=== PATIENT | female | born 1980 | race Caucasian/White ===

== ENCOUNTER 2016-10-14 13:45 | Emergency (ER) | payer OTHER ==
[2016-10-14] MEDS ORDERED: Ibuprofen TAB* 600 MG PO ONE (15:53)
--- NOTE | 2016-10-14 15:54 | UC ---
Skin Complaint HPI - HPI Summary HPI Summary: left breast painful and swollen began yesterday but got signif. worse today - History of Current Complaint Chief Complaint: UCSkin Time Seen by Provider: 10/14/16 15:38 Stated Complaint: SKIN ISSUE Hx Obtained From: Patient Hx Last Menstrual Period: 10/06/16 ?: No Onset/Duration: Sudden Onset, Lasting Days - 2, Still Present, Worse Since - today Timing: Constant Onset Severity: Mild Current Severity: Moderate Pain Intensity: 8 Pain Scale Used: 0-10 Numeric Location: Discrete - left breast Character: Swelling, Pain, Redness Aggravating: Touch Alleviating: Nothing Associated Signs & Symptoms: Positive: Fever, Chills - Allergy/Home Medications Allergies/Adverse Reactions: Allergies Allergy/AdvReac Type Severity Reaction Status Date / Time Cephalexin Allergy Severe Rash Verified 01/24/14 10:07 Clindamycin Allergy Severe Hives Verified 01/24/14 10:07 Doxycycline Allergy Rash Verified 10/14/16 15:33 Latex Allergy SKIN Verified 01/24/14 10:07 IRRITATION Nickel Allergy Rash Verified 01/24/14 10:07 Review of Systems Constitutional: Fever, Chills, Fatigue Skin: Other - left breast firm swollen tender Eyes: Negative ENT: Negative Respiratory: Negative Cardiovascular: Negative Gastrointestinal: Negative Genitourinary: Negative Motor: Negative Neurovascular: Negative Musculoskeletal: Negative Neurological: Negative Psychological: Negative All Other Systems Reviewed And Are Negative: Yes PMH/Surg Hx/FS Hx/Imm Hx Previously Healthy: Yes - Surgical History Surgical History: Yes Surgery Procedure, Year, and Place: APPENDECTOMY-2000 - Family History Known Family History: Positive: None Family History: no cardio vascular issues reported in family lineage - Social History Occupation: Employed Full-time Lives: With Family Alcohol Use: Weekly Alcohol Amount: 2-3 DRINKS PER WEEK Substance Use Type: None Smoking Status (MU): Current Some Day Smoker Type: Cigarettes Amount Used/How Often: 3-4 CIGARETTES PER DAY X 10 YEARS Have You Smoked in the Last Year: Yes When Did the Patient Quit Smoking/Using Tobacco: 12/2013 Physical Exam Triage Information Reviewed: Yes Appearance: Well-Nourished, Ill-Appearing, Pain Distress Vital Signs: Initial Vital Signs Temp 101.2 F 10/14/16 15:29 Pulse 94 10/14/16 15:29 Resp 18 10/14/16 15:29 BP 155/81 10/14/16 15:29 Pulse Ox 100 10/14/16 15:29 Vital Signs Reviewed: Yes Eye Exam: Normal Eyes: Positive: Conjunctiva Clear ENT Exam: Normal ENT: Positive: Normal ENT inspection, Hearing grossly normal. Negative: Nasal congestion, Nasal drainage, Trismus, Muffled/hoarse voice Dental Exam: Normal Neck exam: Normal Neck: Positive: Supple, Nontender, No Lymphadenopathy Respiratory Exam: Normal Respiratory: Positive: Chest non-tender, Lungs clear, Normal breath sounds, No respiratory distress, No accessory muscle use Cardiovascular Exam: Normal Cardiovascular: Positive: RRR, No Murmur, Pulses Normal, Brisk Capillary Refill Musculoskeletal Exam: Normal Musculoskeletal: Positive: Strength Intact, ROM Intact, No Edema Neurological Exam: Normal Neurological: Positive: Alert, Muscle Tone Normal Psychological Exam: Normal Skin Exam: Other Skin: Positive: Other - left breast painful swollen tender no open area observed Course/Dx - Course Course Of Treatment: transfer to [facility] ED for higher level of care - Differential Diagnoses - Skin Complaint Differential Diagnoses: Abscess, Cellulitis, Lymphangitis - Diagnoses Provider Diagnoses: Left breast pain/fever - Physician Notification/Consults Discussed Patient Care With: Mallory Mattson Time Discussed With Above Provider: 16:10 Instructed by Provider To: Transfer Discharge - Discharge Plan Condition: Fair Disposition: AGAINST MEDICAL ADVICE Referrals: Rajesh Conrad MD [Primary Care Provider] -
[2016-10-14 16:15] VITALS: BP 150/80
== END 2016-10-14 16:10 | disposition left against medical advice (07) ==
LOC: UCEAST 13:45
DX: N64.4 Mastodynia (principal); R50.9 Fever, unspecified; Z87.891 Personal history of nicotine dependence
CPT/HCPCS: 99212; A9270-GY; G0463

== ENCOUNTER 2016-10-14 16:41 | Emergency (ER) | payer OTHER ==
[2016-10-14 18:33] LABS: Hematocrit 38 % (35-47); Hemoglobin 12.5 g/dl (12.0-16.0); Mean Corpuscular HGB Conc 33 g/dl (31-36); Mean Corpuscular Hemoglobin 30 pg (27-31); Mean Corpuscular Volume 90 fL (80-97); Mean Platelet Volume 9 um3 (7.4-10.4); Red Blood Count 4.22 10^6/ul (4.0-5.4); Red Cell Distribution Width 14 % (10.5-15); White Blood Count 17.7 10^3/ul (3.5-10.8)
[2016-10-14 18:51] LABS: ALT 10 U/L (7-52); AST 9 U/L (13-39); Albumin 3.9 g/dL (3.2-5.2); Alkaline Phosphatase 78 U/L (34-104); Anion Gap 6 mmol/L (2-11); BUN/Creatinine Ratio 13.5 (8-20); Blood Urea Nitrogen 10 mg/dL (6-24); CO2 Carbon Dioxide 24 mmol/L (22-32); Calcium 8.7 mg/dL (8.6-10.3); Chloride 105 mmol/L (101-111); EGFR African American 116.2 (>60); EGFR Non-African American 90.4 (>60); Globulin 2.8 g/dL (2-4); Glucose 123 mg/dL (70-100); Potassium 3.5 mmol/L (3.5-5.0); Sodium 135 mmol/L (133-145); Total Protein 6.7 g/dL (6.4-8.9)
--- NOTE | 2016-10-14 19:38 | RAD ---
Indication: LEFT breast mass. Fever. Symptoms began yesterday. Red swollen areola region. Painful to touch. Comparison: No relevant prior exams available on the [facility] PACS for comparison. Technique: Ultrasound retroareolar region LEFT breast. Report: In the retroareolar region there is a lobular margin well-circumscribed anechoic lesion measuring 4.2 x 3.3 x 3.7 cm with a well-defined posterior wall and posterior acoustic enhancement devoid of intrinsic vascularity. The cystic lesion demonstrates approximate 1 -- 2 mm wall thickness. No duct dilatation evident. Given the clinical context the cystic lesion is suspicious for abscess. As the finding is not entirely specific short interval follow-up ultrasound after therapy suggested to assess for resolution. ASSESSMENT: ACR BIRADS Category 3: Probably Benign
--- NOTE | 2016-10-14 20:29 | ED ---
Skin Complaint - HPI Summary HPI Summary: 35F presents with pain in left breast since yesterday. She is not breast feeding nor has any children. She denies any abrasion. She does have history of skin infections from eczema. She admits to fevers that are being controlled with ibuprofen. She states the area has increased in size over the past day. She states her pain is okay with ibuprofen. She denies any piercings of the area. She denies any other symptoms. She has extensive allergies to antibiotics that all cause rash. - History of Current Complaint Chief Complaint: EDGeneral Time Seen by Provider: 10/14/16 18:16 Stated Complaint: LT BREAST SWELLING/PAIN Hx Last Menstrual Period: 10/06/16 Pain Intensity: 6 - Allergy/Home Medications Allergies/Adverse Reactions: Allergies Allergy/AdvReac Type Severity Reaction Status Date / Time Cephalexin Allergy Severe Rash Verified 01/24/14 10:07 Clindamycin Allergy Severe Hives Verified 01/24/14 10:07 Doxycycline Allergy Rash Verified 10/14/16 15:33 Latex Allergy SKIN Verified 01/24/14 10:07 IRRITATION Nickel Allergy Rash Verified 01/24/14 10:07 PMH/Surg Hx/FS Hx/Imm Hx Endocrine/Hematology History: Denies: Hx Diabetes, Hx Thyroid Disease Cardiovascular History: Denies: Hx Congestive Heart Failure, Hx Hypertension Respiratory History: Reports: Hx Asthma - Sports induced Denies: Hx Chronic Obstructive Pulmonary Disease (COPD) GI History: Denies: Hx Ulcer History: Reports: Hx Kidney Infection - ABOUT 1 MONTH, Hx Kidney Stones - BILATERAL. CURRENTLY Sensory History: Denies: Hx Contacts or Glasses, Hx Hearing Aid Opthamlomology History: Denies: Hx Contacts or Glasses - Surgical History Surgery Procedure, Year, and Place: APPENDECTOMY-2000 Hx Anesthesia Reactions: No Infectious Disease History: No Infectious Disease History: Denies: Hx Hepatitis, Hx Human Immunodeficiency Virus (HIV), History Other Infectious Disease, Traveled Outside the [place] in Last 30 Days - Family History Known Family History: Positive: None Family History: no cardio vascular issues reported in family lineage - Social History Alcohol Use: Weekly Alcohol Amount: 2-3 DRINKS PER WEEK Substance Use Type: Reports: None Smoking Status (MU): Current Some Day Smoker Type: Cigarettes Amount Used/How Often: 3-4 CIGARETTES PER DAY X 10 YEARS Have You Smoked in the Last Year: Yes Review of Systems Negative: Fever Negative: Chest Pain Negative: Shortness Of Breath Positive: Rash, Other - breast pain All Other Systems Reviewed And Are Negative: Yes Physical Exam Triage Information Reviewed: Yes Vital Signs On Initial Exam: Initial Vitals Temp Pulse Resp BP Pulse Ox 100.8 F 100 20 135/70 99 10/14/16 16:48 10/14/16 16:48 10/14/16 16:48 10/14/16 16:48 10/14/16 16:48 Vital Signs Reviewed: Yes Appearance: Positive: Ill-Appearing Skin: Positive: Warm, Dry, Other - small area of erythema near left breast areola, large area of fluctuance felt under areola Head/Face: Positive: Normal Head/Face Inspection Eyes: Positive: Normal, EOMI, KELLIE, Conjunctiva Clear ENT: Positive: Normal ENT inspection, Pharynx normal, TMs normal Respiratory/Lung Sounds: Positive: Clear to Auscultation, Breath Sounds Present Cardiovascular: Positive: Normal, RRR - [place] Coma Scale Coma Scale Total: 15 Diagnostics - Vital Signs Vital Signs Temp Pulse Resp BP Pulse Ox 10/14/16 17:57 99.9 F 96 18 128/77 98 10/14/16 16:48 100.8 F 100 20 135/70 99 - Laboratory Lab Results: Lab Results 10/14/16 10/14/16 10/14/16 Range/Units 18:23 18:23 18:23 WBC 17.7 H (3.5-10.8) 10^3/ul RBC 4.22 (4.0-5.4) 10^6/ul Hgb 12.5 (12.0-16.0) g/dl Hct 38 (35-47) % MCV 90 (80-97) fL MCH 30 (27-31) pg MCHC 33 (31-36) g/dl RDW 14 (10.5-15) % Plt Count 238 (150-450) 10^3/ul MPV 9 (7.4-10.4) um3 Neut % (Auto) 81.3 (38-83) % Lymph % (Auto) 12.7 L (25-47) % Logan % (Auto) 5.5 (1-9) % Eos % (Auto) 0.3 (0-6) % Baso % (Auto) 0.2 (0-2) % Absolute Neuts (auto) 14.4 H (1.5-7.7) 10^3/ul Absolute Lymphs (auto) 2.3 (1.0-4.8) 10^3/ul Absolute Monos (auto) 1.0 H (0-0.8) 10^3/ul Absolute Eos (auto) 0.1 (0-0.6) 10^3/ul Absolute Basos (auto) 0 (0-0.2) 10^3/ul Absolute Nucleated RBC 0 10^3/ul Nucleated RBC % 0 Sodium 135 (133-145) mmol/L Potassium 3.5 (3.5-5.0) mmol/L Chloride 105 (101-111) mmol/L Carbon Dioxide 24 (22-32) mmol/L Anion Gap 6 (2-11) mmol/L BUN 10 (6-24) mg/dL Creatinine 0.74 (0.51-0.95) mg/dL Est GFR ( Amer) 116.2 (>60) Est GFR (Non-Af Amer) 90.4 (>60) BUN/Creatinine Ratio 13.5 (8-20) Glucose 123 H (70-100) mg/dL Lactic Acid 1.2 (0.5-2.0) mmol/L Calcium 8.7 (8.6-10.3) mg/dL Total Bilirubin 0.70 (0.2-1.0) mg/dL AST 9 L (13-39) U/L ALT 10 (7-52) U/L Alkaline Phosphatase 78 (34-104) U/L C-React Prot High Sens 98.72 mg/L Total Protein 6.7 (6.4-8.9) g/dL Albumin 3.9 (3.2-5.2) g/dL Globulin 2.8 (2-4) g/dL Albumin/Globulin Ratio 1.4 (1-3) Beta HCG, Quant < 0.60 mIU/mL Result Diagrams: 10/14/16 18:23 10/14/16 18:23 Lab Statement: Any lab studies that have been ordered have been reviewed, and results considered in the medical decision making process. - Ultrasound No standard instances Ultrasound Interpretation: Positive (See Comments) - Report: In the retroareolar region there is a lobular margin well-circumscribed anechoic lesion measuring 4.2 x 3.3 x 3.7 cm with a well-defined posterior wall and posterior acoustic enhancement devoid of intrinsic vascularity. The cystic lesion demonstrates approximate 1 -- 2 mm wall thickness. No duct dilatation evident. Given the clinical context the cystic lesion is suspicious for abscess. As the finding is not entirely specific short interval follow-up ultrasound after therapy suggested to assess for resolution. Ultrasound Interpretation Completed By: Radiologist Course/Dx - Course Course Of Treatment: 35F presents with pain in left breast since yesterday. She is not breast feeding nor has any children. She denies any abrasion. She does have history of skin infections from eczema. She admits to fevers that are being controlled with ibuprofen. She states the area has increased in size over the past day. She states her pain is okay with ibuprofen. She denies any piercings of the area. on exam area of tenderness and fluctance under areola with some erythema. got u/s shows large abscess and labs wbc 17. lactic normal. dr quijano examined patient and recommended call surgery. called dr english who came in and I&D abscess. got large amount of drainage and packed wound. discussed will place on bactrim due to allergies and will give MRSA coverage. dr english would like surgery to follow up in two days to change packing. discussed pain options and patient would like to just take ibuprofen and tyenlol. patient understands and agrees with plan. - Differential Diagnoses - Skin Complaint Differential Diagnoses: Abscess, Cellulitis, Contact Dermatitis - Diagnoses Provider Diagnoses: Left breast abscess Discharge - Discharge Plan Condition: Good Disposition: HOME Prescriptions: Sulfamethox/Trimethoprim DS* [Bactrim DS 800/160 TAB*] 1 tab PO BID #19 tab Patient Education Materials: Abscess (ED) Referrals: Michelle Lan MD [Primary Care Provider] - Hayder English MD [Medical Doctor] - Additional Instructions: Take antibiotic twice a day for 10 days, first dose given in ED Take ibuprofen or Tylenol for pain every 6 hours Follow up with surgery Return to ED if any new or worsening symptoms
[2016-10-14] MEDS ORDERED: Sulfamethox/Trimethoprim DS 800/160* TAB PO ONE (20:48)
[2016-10-14] MEDS ORDERED: oxyCODONE/Acetamin 5/325 MG* TAB PO ONE (22:30)
[2016-10-14 22:42] VITALS: BP 123/79
--- NOTE | 2016-10-15 10:33 | CONS ---
CC: Dr. Michelle Lan, [facility]. * CONSULTATION REPORT: DATE OF CONSULT: 10/14/16 REFERRING PHYSICIAN: Emergency room. REASON FOR CONSULT: Left breast abscess. HISTORY OF PRESENT ILLNESS: Ms. Sally Keller is a very pleasant 35-year-old woman who has a history of eczema who yesterday started developing some discomfort in the left breast that centered around the nipple. This became increasingly firm, swollen, and tender. She was seen in the outpatient urgent care center and referred to the hospital emergency room here at [facility]. She was noted to be at a temperature of 100.8, the heart rate in the 90s. There is tenderness in the left breast without evidence of redness or erythema, but there was fullness in the periareolar area. She underwent an ultrasound of the left breast. I did review these images. This shows a 5 cm x 4 cm area which appears to be immediately behind the nipple with a cystic fluid like collection with thickened dempsey consistent with an abscess. Surgical consultation was obtained. PAST MEDICAL HISTORY: 1. Eczema. 2. Kidney stones. PAST SURGICAL HISTORY: 1. Appendectomy. 2. Kidney stone removal. MEDICATIONS: Include: 1. Oral contraception pill. 2. Quita. ALLERGIES: CEPHALEXIN, CLINDAMYCIN, DOXYCYCLINE, LATEX, and NICKEL. These have given a rash and fever. 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 She uses alcohol and tobacco in a very rare social basis. REVIEW OF SYSTEMS: Otherwise unremarkable. PHYSICAL EXAM: Temperature 98.7, pulse of 81, blood pressure 123/79. General: A well-developed, well-nourished slightly overweight female with normal attention and grooming. Lungs were clear to auscultation with a normal respiratory effort. Heart was regular, rate, and rhythm without murmurs, rubs, or gallops. Evaluation of the left breast shows some fullness in almost the overlying and lateral to the circumferential areolar area. It is mainly tender just inferior about the 6 o'clock position, but there is firmness throughout the entire breast, there is no redness but it is indurated. I appreciate no fluctuance. I appreciate no mass in the palpable areas, although this is uncomfortable. The left breast shows no nipple inversion or discharge. The right breast was without mass and the nipple is everted. I did review the imaging of the ultrasound. IMPRESSION: Left breast abscess. She seems to be at low risk and she is not nursing. She has not had any trauma. There has been no bleeding or nipple discharge; however, exam and ultrasound are consistent with an abscess. On discussing this with her, I do recommend that she undergo an incision and drainage here in the emergency room with probable packing and antibiotics and office followup. I discussed the procedure with her and the risks are but not limited to bleeding , infection, discomfort, recurrence, further surgical intervention depending on the clinical course and discomfort were all explained. Please see separate operative procedure note. [id number]/[facility] #: [id number] MTDD
--- NOTE | 2016-10-15 15:23 | OP ---
CC: Dr. Michelle Lan, [facility] * DATE OF OPERATION: 10/14/16 - EMERGENCY DEPT DATE OF : 84 SURGEON: Hayder English MD ANESTHESIA: 0.5% Marcaine with epinephrine. PRE-OP DIAGNOSIS: Left breast abscess. POST-OP DIAGNOSIS: Left breast abscess. OPERATIVE PROCEDURE: Incision and drainage of the left breast abscess. ESTIMATED BLOOD LOSS: Minimal. SPECIMENS: Culture for fluid/pus for Gram stain and culture. DRAINS: One quarter inch Nu-Gauze packing. COMPLICATIONS: None. WOUND CLASSIFICATION: 4. PLAN: The wound was packed and she will be started on oral Bactrim. Arrangements will be made for office followup in 48 hours for packing change. She was instructed to take Motrin and Advil for discomfort. Call if she should have fever, increasing redness on the chest or breast, severe pain, nausea, vomiting, or other questions or concerns including bleeding. BRIEF HISTORY: Ms. Sally Keller was seen in the emergency room this evening. Please see the separate dictated consultation and she is now to undergo incision and drainage of a left breast abscess. DESCRIPTION OF PROCEDURE: Written and informed consent was obtained. The left breast was marked with indelible ink. The left breast was prepped and draped in the usual sterile fashion. Time-out verification was completed. 0.50% Marcaine with epinephrine was infiltrated mainly in the 6 o'clock position of the breast just below the areola. Initially, an 18 gauge needle was then used to aspirate about 15 cc of pus which was really directly behind the nipple. There was still persistent pus. Thus, I made an incision of approximately 1.5 to 2 cm and following the needle into a rather large cavity, an additional thicker purulent pus was drained. This cavity was opened with hemostat; and then, once I was assured that all the pus was drained, a one- quarter inch Nu-Gauze was used to pack the cavity. Dry sterile dressings were applied. The patient tolerated the procedure well. [id number]/[facility] #: [id number] MTDD
--- NOTE | 2016-10-17 09:22 | PN ---
Progress Note - Progress Note Date of Service: 10/14/16 Note: Patient preliminary results obtained. MRSA and s. aureus negative. staph lugdenensis grew 2+. Started on Bactrim at d/c after I&D. Will wait for final wound cultures. No further change needed at this time.
== END 2016-10-14 22:45 | disposition home or self-care (01) ==
LOC: ED 16:41
DX: N61.1 Abscess of the breast and nipple (principal); R21 Rash and other nonspecific skin eruption; Z72.0 Tobacco use
CPT/HCPCS: 36415; 80053; 83605; 84702; 85025; 86141; 87070; 87077; 87186; 87205; 87640; 87641; 99283; A9270-GY